=== PATIENT | female | born 1935 | race Caucasian/White ===

== ENCOUNTER 2016-11-23 12:32 | Emergency (ER) | payer OTHER ==
[~2016-11-23] VITALS: Ht 157.5 cm; Wt 91.1 kg
[~2016-11-23 12:32] MED LIST: ADVAIR HFA120 INHALA IH; ADVIL,NUPRIN,M200 MG PO; ALBUTEROL2.5 MG/3 M IH; ALENDRONATE SOD70 MG PO; AMBIEN10 MG PO; AMBIEN5 MG PO; AMLODIPINE BES2.5 MG PO; AMLODIPINE BESYL5 MG PO; ANTI-DIARRHEA2 MG PO; APLISOL5 TUB UNIT ID; ASPIRIN E.C.81 M1 PO; Ambien PO; Ascorbic Acid,Ester- PO; BACTRIM,SEPT1 TABLET PO; BENTYL20 MG PO; BICARSIM FORTE125 MG PO; BICARSIM80 MG PO; BUSPAR10 MG PO; BUSPAR5 MG PO; Buspar PO; CALCIUM + D3 E1 EACH PO; CALCIUM 600 +1 EAC1 PO; CEFDINIR300 MG PO; CEPHALEXIN250 MG PO; CIPRO250 MG PO; CIPRO500 MG PO; CIPROFLOXACIN500 M1 PO; CLONAZEPAM0.5 MG PO; COLACE100 MG PO; COMPAZINE10 MG PO; COZAAR50 MG PO; CYANOCOBALAM1000 MCG PO; DELTASONE10 MG PO; DOCUSATE SODIU100 MG PO; DULCOLAX10 MG PR; DUONEB 2.5-0.5 M3 ML IH; EFFEXOR75 MG PO; ENDOCET 5-3251 EACH PO; ENOXAPARIN30 MG/0.3 SC; FAMOTIDINE20 MG PO; FEOSOL325 MG PO; FEROSUL325 MG PO; FERROUS SULFAT325 MG PO; Feosol PO; Flagyl PO; GABAPENTIN; GRALISE1 EACH PO; HYDROCHLOROTH12.5 M3 PO; INVANZ1 GM IM; IPRATROPIU0.2 MG/1 M IH; K-DUR10 MEQ PO; KEFLEX250 MG PO; KLONOPIN0.5 M1 PO; KlonoPIN PO; LASIX10 MG PO; LEVAQUIN500 MG PO; LEVAQUIN750 MG PO; LEVOFLOXACIN250 MG PO; LIDOCAINE700 MG TD; LIDODERM 5% P1 PATCH TD; LOPRESSOR25 MG PO; LOPRESSOR50 MG PO; LOSARTAN POTAS100 MG PO; LOSARTAN POTASS50 MG PO; Levaquin PO; MACRODANTIN100 MG PO; MECLIZINE HCL12.5 M1 PO; METOPROLOL TART25 MG PO; METOPROLOL TART50 MG PO; MIRALAX17 GM PO; MIRALAX255 GM PO; MORPHINE SULFAT15 M1 PO; NEURONTIN100 MG PO; NORVASC10 MG PO; NORVASC2.5 MG PO; NYSTATIN100000 UN1 PO; Norvasc PO; OMEPRAZOLE20 MG PO; ONDANSETRON HCL4 M1 PO; OXYCODONE HCL10 MG PO; OXYCODONE HCL5 MG PO; OXYCODONE-APAP1 EAC7 PO; OXYCODONE-APAP1 EACH PO; OXYCONTIN10 MG PO; OYSTER SHELL 51 EACH PO; OYSTER SHELL C1 EA16 PO; OYSTERCAL-D 501 EACH PO; Oyst-Cal D, Oscal W/ PO; PANTOPRAZOLE SO40 MG PO; PAROXETINE HCL20 MG PO; PAXIL20 MG PO; PEPCID AC20 MG PO; PEPCID20 MG PO; PERCOCET 10/1 TABLET PO; PERCOCET 5/31 TABLET PO; PREDNISONE10 MG PO; PRILOSEC20 MG PO; PROAIR HFA8.5 GM IH; PROTONIX40 MG PO; PROVENTIL,2.5 MG/3 M IH; Paxil PO; Pepcid PO; Pravachol PO; Protonix PO; ROBITUSSIN AC,T10 ML PO; ROXICODONE5 MG PO; SENNA8.6 MG PO; SIMVASTATIN20 MG PO; TOPROL XL50 MG PO; TRAMADOL HCL50 MG PO; TRAZODONE HCL50 MG PO; TYLENOL PM1 CAPLET PO; TYLENOL REGULA325 MG PO; TYLENOL325 M1 PO; Toprol XL PO; Tylenol Regular Stre PO; ULTRAM50 MG PO; Ultram PO; VENTOLIN HFA18 GM IH; Vitamin B-12 PO; XANAX0.125 MG PO; ZITHROMAX250 MG PO; ZOCOR20 MG PO; ZOFRAN4 MG PO; Zocor PO
[2016-11-23 13:29] LABS: ADD MIUA? YES; BILIRUBIN NEGATIVE; BLOOD NEGATIVE; COLOR YELLOW ((YELLOW)); GLUCOSE (STRIP) NEGATIVE; KETONES NEGATIVE; LEUKOCYTES SMALL; NITRITE NEGATIVE; PROTEIN (STRIP) NEGATIVE; SPECIFIC GRAVITY 1.015 (1.000-1.030); UROBILINOGEN 0.2 MG/DL (0.2-1.0)
[2016-11-23 13:34] LABS: EOSINOPHIL (%) 3.2 % (0-5); EOSINOPHIL COUNT 0.2 K/uL (0-0.3); HEMATOCRIT 32.6 % (36.0-46.0); IMMATURE GRANULOCYTE (%) 0.4 % (0.0-0.7); INSTRUMENT ABS NEUTROPHIL CT 3.2 K/uL; LYMPHOCYTE COUNT 0.8 K/uL (1.0-2.8); MCH 30.7 PG (29.0-34.0); MCHC 30.4 G/DL (30.0-36.0); MCV 101.2 FL (83-99); MEAN PLAT.VOLUME 10.4 uM^3 (9.5-12.4); MONOCYTE COUNT 0.5 K/uL (0-0.8); NEUTROPHIL (%) 68.5 % (45-76); NEUTROPHIL COUNT 3.2 K/uL (1.8-6.4); PLATELET COUNT 169 K/uL (156-360); RBC DIS.WIDTH-CV 13.6 % (11.8-14.6); RBC DIS.WIDTH-SD 50.4 % (39-53); RED BLOOD COUNT 3.22 M/uL (3.80-5.20); WHITE BLOOD COUNT 4.7 K/uL (4.1-10.2)
[2016-11-23 13:40] LABS: BACTERIA 3+ /HPF; EPITHELIAL CELLS RARE /HPF; GRANULAR CASTS 0-5 /LPF; HYALINE CASTS 0-5 /LPF; MUCUS TRACE /LPF; RED BLOOD CELLS 0-5 /HPF (0-5); UCUL ADDED? YES
[2016-11-23 13:50] LABS: CHLORIDE 101 mEq/L (99-109); SODIUM 138 mEq/L (136-147)
[2016-11-23 13:52] LABS: GLUCOSE 96 mg/dL (70-99)
[2016-11-23 13:53] LABS: ANION GAP 8 MEQ/L (2-14)
[2016-11-23 13:54] LABS: TOTAL BILIRUBIN 0.6 mg/dL (0.0-1.0)
[2016-11-23 13:55] LABS: ALKALINE PHOSPHATASE 114 IU/L (3-129)
[2016-11-23 13:56] LABS: GFR ESTIMATE (CALCULATED) 46 mL/min/
[2016-11-23 13:57] LABS: UREA NITROGEN (BUN) 31 mg/dL (9-23)
[2016-11-23 13:59] LABS: LIPASE 21 U/L (1.0-51.0)
[2016-11-23 14:02] LABS: TROP-I INTERPRETATION NEGATIVE; TROPONIN-I 0.02 ng/mL (0.0-0.30)
[2016-11-23] MEDS ORDERED: ANTIVERT25 MG PO (14:20)
[2016-11-23] MEDS ORDERED: CIPRO500 MG PO (14:20)
[2016-11-23 15:37] VITALS: BP 124/46
== END 2016-11-23 15:56 | disposition home or self-care (01) ==
LOC: EME 12:32
PROVIDERS: Emergency Medicine
DX: R53.1 Weakness (principal); N39.0 Urinary tract infection, site not specified; R10.13 Epigastric pain; R05 Cough; R42 Dizziness and giddiness; Z87.442 Personal history of urinary calculi; G89.29 Other chronic pain; I10 Essential (primary) hypertension; J44.9 Chronic obstructive pulmonary disease, unspecified; J45.909 Unspecified asthma, uncomplicated; Z95.1 Presence of aortocoronary bypass graft; Z90.49 Acquired absence of other specified parts of digestive tract; Z87.891 Personal history of nicotine dependence; Z99.81 Dependence on supplemental oxygen
CPT/HCPCS: 71010; 74176; 80053; 81003; 83690; 84484; 85025; 87077; 87086; 87186; 93005; 99281; 99285; J2270; J2405; J7030

== ENCOUNTER 2017-01-13 20:53 | Emergency (ER) | payer OTHER ==
[~2017-01-13] VITALS: Ht 154.9 cm; Wt 93.5 kg
[~2017-01-13 20:53] MED LIST changes: +ANTIVERT25 MG PO
[2017-01-14 01:45] VITALS: BP 149/63
== END 2017-01-14 01:45 | disposition home or self-care (01) ==
LOC: EXP 20:53 → EME 20:53 → EXP 01-14 01:45
DX: S60.211A Contusion of right wrist, initial encounter (principal); S20.211A Contusion of right front wall of thorax, initial encounter; W07.XXXA Fall from chair, initial encounter; J44.9 Chronic obstructive pulmonary disease, unspecified; E78.5 Hyperlipidemia, unspecified; F32.9 Major depressive disorder, single episode, unspecified; I50.9 Heart failure, unspecified; I11.0 Hypertensive heart disease with heart failure; K21.9 Gastro-esophageal reflux disease without esophagitis; Z95.1 Presence of aortocoronary bypass graft; Z87.891 Personal history of nicotine dependence
CPT/HCPCS: 71020; 73110; 99281; 99284

== ENCOUNTER 2017-03-14 17:19 | Inpatient (IN) | payer OTHER ==
[~2017-03-14] VITALS: Ht 162.6 cm; Wt 91.8 kg
[2017-03-14 18:33] LABS: ADD MIUA? YES; BILIRUBIN NEGATIVE; BLOOD NEGATIVE; COLOR STRAW ((YELLOW)); GLUCOSE (STRIP) NEGATIVE; KETONES NEGATIVE; LEUKOCYTES TRACE; NITRITE NEGATIVE; PROTEIN (STRIP) NEGATIVE; SPECIFIC GRAVITY 1.009 (1.000-1.030); UROBILINOGEN 0.2 MG/DL (0.2-1.0)
[2017-03-14 18:40] LABS: MCH 30.7 PG (29.0-34.0); MCHC 30.8 G/DL (30.0-36.0); MCV 99.6 FL (83-99); MEAN PLAT.VOLUME 9.6 uM^3 (9.5-12.4); PLATELET COUNT 179 K/uL (156-360); RBC DIS.WIDTH-CV 13.3 % (11.8-14.6); RBC DIS.WIDTH-SD 48.2 % (39-53); RED BLOOD COUNT 2.61 M/uL (3.80-5.20); WHITE BLOOD COUNT 4.8 K/uL (4.1-10.2)
[2017-03-14 18:41] LABS: BACTERIA NONE SEEN /HPF; EPITHELIAL CELLS RARE /HPF; MUCUS TRACE /LPF; RED BLOOD CELLS 0-5 /HPF (0-5); UCUL ADDED? NO; WHITE BLOOD CELLS 0-5 /HPF (0-5)
[2017-03-14 18:45] LABS: PROTHROMBIN TIME 11.5 SEC (10.2-12.9); TROP-I INTERPRETATION NEGATIVE; TROPONIN-I 0.01 ng/mL (0.0-0.30)
[2017-03-14 18:47] LABS: PTT 27.1 SEC (25-37)
[2017-03-14 18:49] LABS: CHLORIDE 106 mEq/L (99-109); POTASSIUM 4.1 mEq/L (3.7-5.4); SODIUM 143 mEq/L (136-147)
[2017-03-14 18:51] LABS: GLUCOSE 93 mg/dL (70-99)
[2017-03-14 18:53] LABS: ANION GAP 7 MEQ/L (2-14); TOTAL BILIRUBIN 0.6 mg/dL (0.0-1.0)
[2017-03-14 18:55] LABS: ALKALINE PHOSPHATASE 91 IU/L (3-129); GFR ESTIMATE (CALCULATED) > 59 mL/min/
[2017-03-14 18:56] LABS: UREA NITROGEN (BUN) 16 mg/dL (9-23)
[2017-03-14] MEDS ORDERED: OXYCODONE-APAP1 EACH PO (23:59)
[2017-03-15] VITALS (8 sets, daily range): BP systolic 119–171; BP diastolic 67–78
[2017-03-15] MEDS ORDERED: FUROSEMIDE20 MG PO
[2017-03-15] MEDS ORDERED: BUSPAR10 MG PO (00:07)
[2017-03-15 06:49] LABS: EOSINOPHIL (%) 3.8 % (0-5); EOSINOPHIL COUNT 0.2 K/uL (0-0.3); HEMATOCRIT 25.2 % (36.0-46.0); IMMATURE GRANULOCYTE (%) 0.3 % (0.0-0.7); INSTRUMENT ABS NEUTROPHIL CT 2.5 K/uL; LYMPHOCYTE COUNT 0.8 K/uL (1.0-2.8); MCH 31.7 PG (29.0-34.0); MCHC 31.7 G/DL (30.0-36.0); MEAN PLAT.VOLUME 10.5 uM^3 (9.5-12.4); MONOCYTE (%) 11.6 % (3-12); MONOCYTE COUNT 0.5 K/uL (0-0.8); NEUTROPHIL (%) 62.9 % (45-76); NEUTROPHIL COUNT 2.5 K/uL (1.8-6.4); PLATELET COUNT 186 K/uL (156-360); RBC DIS.WIDTH-CV 13.4 % (11.8-14.6); RBC DIS.WIDTH-SD 48.8 % (39-53); RED BLOOD COUNT 2.52 M/uL (3.80-5.20)
[2017-03-15 07:13] LABS: ANION GAP 5 MEQ/L (2-14); CHLORIDE 107 MEQ/L (99-109); GFR ESTIMATE (CALCULATED) > 59 mL/min/; GLUCOSE 95 mg/dL (70-99); POTASSIUM 3.8 MEQ/L (3.7-5.4); SAMPLE HEMOLYSIS CHECK 0; SAMPLE ICTERIC CHECK 0; SAMPLE LIPEMIA CHECK 0; SODIUM 145 MEQ/L (136-147); UREA NITROGEN (BUN) 13 mg/dL (9-23)
[2017-03-15 08:38] LABS: INTERNAL CONTROL VALID? YES
[2017-03-15 11:42] LABS: HEMATOCRIT 25.8 % (36.0-46.0); MCV 99.2 FL (83-99)
[2017-03-15 13:39] LABS: INTERNAL CONTROL VALID? YES
[2017-03-15 13:52] LABS: INTERNAL CONTROL VALID? YES
[2017-03-15 14:18] LABS: C DIFF TOXIN NEGATIVE (NEGATIVE)
[2017-03-15 14:19] LABS: PROBE CHECK PASS; SPECIMEN PROCESSING CONTROL PASS
[2017-03-15 18:10] LABS: HEMATOCRIT 25.9 % (36.0-46.0); MCV 97.7 FL (83-99)
[2017-03-16 00:42] VITALS: BP 141/63
[2017-03-16 03:53] VITALS: BP 151/69
[2017-03-16 07:10] VITALS: BP 187/77
[2017-03-16 11:34] VITALS: BP 146/64
[2017-03-16 15:03] VITALS: BP 143/65
[2017-03-16 18:26] LABS: METH RESISTANT S AUREUS PCR NEGATIVE (NEGATIVE)
[2017-03-16 18:27] LABS: PROBE CHECK PASS; SPECIMEN PROCESSING CONTROL PASS
[2017-03-17 00:40] VITALS: BP 124/60
[2017-03-17 07:50] VITALS: BP 186/74
[2017-03-17 11:35] VITALS: BP 133/63
[2017-03-17 15:26] VITALS: BP 114/59
[2017-03-17 23:41] VITALS: BP 131/61
[2017-03-17 23:50] VITALS: BP 134/64; BP 141/59
[2017-03-18] VITALS: BP 131/61
[2017-03-18 07:46] VITALS: BP 115/56
[2017-03-18 09:20] VITALS: BP 115/59
[2017-03-18 09:58] LABS: EOSINOPHIL (%) 6.3 % (0-5); EOSINOPHIL COUNT 0.3 K/uL (0-0.3); HEMATOCRIT 28.1 % (36.0-46.0); IMMATURE GRANULOCYTE (%) 0.2 % (0.0-0.7); INSTRUMENT ABS NEUTROPHIL CT 2.6 K/uL; LYMPHOCYTE COUNT 1.1 K/uL (1.0-2.8); MCHC 30.6 G/DL (30.0-36.0); MCV 101.4 FL (83-99); MEAN PLAT.VOLUME 10.2 uM^3 (9.5-12.4); MONOCYTE (%) 10.2 % (3-12); MONOCYTE COUNT 0.5 K/uL (0-0.8); NEUTROPHIL (%) 58.4 % (45-76); NEUTROPHIL COUNT 2.6 K/uL (1.8-6.4); PLATELET COUNT 228 K/uL (156-360); RBC DIS.WIDTH-CV 14.3 % (11.8-14.6); RBC DIS.WIDTH-SD 51.9 % (39-53); RED BLOOD COUNT 2.77 M/uL (3.80-5.20); WHITE BLOOD COUNT 4.4 K/uL (4.1-10.2)
[2017-03-18 10:26] LABS: ANION GAP 9 MEQ/L (2-14); CHLORIDE 102 MEQ/L (99-109); GFR ESTIMATE (CALCULATED) 56 mL/min/; GLUCOSE 83 mg/dL (70-99); MAGNESIUM 1.9 mg/dl (1.3-2.7); POTASSIUM 4.2 MEQ/L (3.7-5.4); SAMPLE HEMOLYSIS CHECK 0; SAMPLE ICTERIC CHECK 0; SAMPLE LIPEMIA CHECK 0; SODIUM 142 MEQ/L (136-147); UREA NITROGEN (BUN) 15 mg/dL (9-23)
[2017-03-18 10:27] LABS: TROP-I INTERPRETATION NEGATIVE; TROPONIN-I 0.02 ng/mL (0.0-0.30)
[2017-03-18 15:47] VITALS: BP 115/56
[2017-03-18 16:00] VITALS: BP 115/56
[2017-03-19 00:57] VITALS: BP 134/61
[2017-03-19] MEDS ORDERED: CEFDINIR300 MG PO (11:48)
== END 2017-03-19 14:50 | disposition home or self-care (01) | DRG 190 ==
LOC: EME 17:19 → EDOF 22:54 → 2EAST 22:54 → ENRESERV 22:58 → CANRESERV 23:25 → 2EAST 23:59
PROVIDERS: Emergency Medicine; Internal Medicine
DX: J44.0 Chronic obstructive pulmonary disease with (acute) lower respiratory infection (principal); J18.1 Lobar pneumonia, unspecified organism; J44.1 Chronic obstructive pulmonary disease with (acute) exacerbation; I11.0 Hypertensive heart disease with heart failure; I50.9 Heart failure, unspecified; J96.10 Chronic respiratory failure, unspecified whether with hypoxia or hypercapnia; E78.5 Hyperlipidemia, unspecified; K21.9 Gastro-esophageal reflux disease without esophagitis; D50.9 Iron deficiency anemia, unspecified; F32.9 Major depressive disorder, single episode, unspecified; F41.9 Anxiety disorder, unspecified; M19.90 Unspecified osteoarthritis, unspecified site; E66.9 Obesity, unspecified; Z68.34 Body mass index [BMI] 34.0-34.9, adult; Z99.81 Dependence on supplemental oxygen; Z87.891 Personal history of nicotine dependence; Z95.1 Presence of aortocoronary bypass graft; Z85.43 Personal history of malignant neoplasm of ovary; Z85.3 Personal history of malignant neoplasm of breast; Z87.442 Personal history of urinary calculi; Z86.711 Personal history of pulmonary embolism
CPT/HCPCS: 71010; 71020; 80048; 80053; 81003; 82272; 83605; 83630; 83735; 84484; 85014; 85018; 85025; 85027; 85610; 85730; 86850; 86900; 86901; 87040; 87070; 87177; 87205; 87449; 87493; 87641; 92610 GN; 93005; 94640; 94640 76; 94799; 99202; 99281; 99285; J0456; J0696; J1644; J7030; J7050

== ENCOUNTER 2017-07-04 09:27 | Emergency (ER) | payer OTHER ==
[~2017-07-04] VITALS: Ht 162.6 cm; Wt 88.1 kg
[~2017-07-04 09:27] MED LIST changes: +FUROSEMIDE20 MG PO
[2017-07-04 11:09] LABS: APPEARANCE SL.HAZY ((CLEAR)); BILIRUBIN NEGATIVE; BLOOD NEGATIVE; COLOR YELLOW ((YELLOW)); GLUCOSE (STRIP) NEGATIVE; KETONES NEGATIVE; LEUKOCYTES MODERATE; NITRITE NEGATIVE; PROTEIN (STRIP) 30; SPECIFIC GRAVITY 1.025 (1.000-1.030); UROBILINOGEN 0.2 MG/DL (0.2-1.0)
[2017-07-04 11:16] LABS: BASOPHIL (%) 0.2 % (0-1); EOSINOPHIL (%) 5.8 % (0-5); EOSINOPHIL COUNT 0.3 K/uL (0-0.3); HEMATOCRIT 25.8 % (36.0-46.0); HEMOGLOBIN 7.6 G/DL (11.9-15.5); IMMATURE GRANULOCYTE (%) 0.4 % (0.0-0.7); LYMPHOCYTE (%) 17.4 % (15-42); LYMPHOCYTE COUNT 0.8 K/uL (1.0-2.8); MCH 26.7 PG (29.0-34.0); MCHC 29.5 G/DL (30.0-36.0); MCV 90.5 FL (83-99); MONOCYTE (%) 8.3 % (3-12); MONOCYTE COUNT 0.4 K/uL (0-0.8); NEUTROPHIL (%) 67.9 % (45-76); NEUTROPHIL COUNT 3.3 K/uL (1.8-6.4); PLATELET COUNT 156 K/uL (156-360); RBC DIS.WIDTH-CV 15.5 % (11.8-14.6); RBC DIS.WIDTH-SD 50.4 % (39-53); RED BLOOD COUNT 2.85 M/uL (3.80-5.20); WHITE BLOOD COUNT 4.8 K/uL (4.1-10.2)
[2017-07-04 11:17] LABS: BACTERIA 3+ /HPF; EPITHELIAL CELLS RARE /HPF; MUCUS 1+ /LPF; UCUL ADDED? YES; WHITE BLOOD CELLS 20-30 /HPF (0-5)
[2017-07-04 11:25] LABS: ALBUMIN 3.6 g/dL (3.2-4.8)
[2017-07-04 11:26] LABS: CHLORIDE 106 mEq/L (99-109); POTASSIUM 3.9 mEq/L (3.7-5.4); SODIUM 142 mEq/L (136-147)
[2017-07-04 11:28] LABS: GLUCOSE 110 mg/dL (70-99); TOTAL PROTEIN 6.5 g/dL (6.4-8.3)
[2017-07-04 11:30] LABS: TOTAL BILIRUBIN 0.3 mg/dL (0.0-1.0)
[2017-07-04 11:31] LABS: ALKALINE PHOSPHATASE 77 IU/L (3-129); GFR ESTIMATE (CALCULATED) 56 mL/min/
[2017-07-04 11:33] LABS: AST (GOT) 15 IU/L (2-34); UREA NITROGEN (BUN) 29 mg/dL (9-23)
[2017-07-04 11:34] LABS: ALT (GPT) 8 IU/L (3-49)
[2017-07-04 11:37] LABS: TROP-I INTERPRETATION NEGATIVE; TROPONIN-I 0.02 ng/mL (0.0-0.30)
[2017-07-04 12:04] LABS: AMPHETAMINE NEGATIVE (500 ng/mL); BARBITURATES NEGATIVE (200 ng/mL); BENZODIAZEPINES NEGATIVE (150 ng/mL); BUPRENORPHINE NEGATIVE (10 ng/mL); COCAINE NEGATIVE (150 ng/mL); METHADONE NEGATIVE (200 ng/mL); METHAMPHETAMINE NEGATIVE (500 ng/mL); OPIATES (MORPHINE) NEGATIVE (100 ng/mL); OXYCODONE NEGATIVE (100 ng/mL); PHENCYCLIDINE NEGATIVE (25 ng/mL); PROPOXYPHENE NEGATIVE (300 ng/mL); THC CANNABINOIDS NEGATIVE (50 ng/mL); TRICYCLIC ANTIDEPRESSANTS NEGATIVE (300 ng/mL)
[2017-07-04 13:07] LABS: ACETAMINOPHEN (TYLENOL) < 10 mcg/mL (10-30)
[2017-07-04] MEDS ORDERED: KEFLEX500 MG PO (15:06)
[2017-07-04] MEDS ORDERED: ZOFRAN4 MG PO (15:06)
[2017-07-04] MEDS ORDERED: BENTYL20 MG PO (15:06)
[2017-07-04 18:30] VITALS: BP 125/52
== END 2017-07-04 18:50 | disposition home or self-care (01) ==
LOC: EME → EDBD 09:27 → EME 09:27
PROVIDERS: Emergency Medicine
DX: F11.23 Opioid dependence with withdrawal (principal); M79.1 Myalgia; R19.7 Diarrhea, unspecified; N39.0 Urinary tract infection, site not specified; I11.0 Hypertensive heart disease with heart failure; I50.9 Heart failure, unspecified; K21.9 Gastro-esophageal reflux disease without esophagitis; J44.9 Chronic obstructive pulmonary disease, unspecified; E78.5 Hyperlipidemia, unspecified; F41.9 Anxiety disorder, unspecified; F32.9 Major depressive disorder, single episode, unspecified; Z87.442 Personal history of urinary calculi; Z90.49 Acquired absence of other specified parts of digestive tract; Z87.891 Personal history of nicotine dependence; Z88.6 Allergy status to analgesic agent; Z88.8 Allergy status to other drugs, medicaments and biological substances
CPT/HCPCS: 71045; 74176; 80053; 81003; 83605; 83880; 84484; 85025; 87040; 87077; 87086; 87186; 87502; 93005; 99281; 99284; G0480; J2270; J2405; J3010

== ENCOUNTER 2017-08-03 11:28 | Emergency (ER) | payer OTHER ==
[~2017-08-03] VITALS: Ht 162.6 cm; Wt 88.3 kg
[~2017-08-03 11:28] MED LIST changes: +KEFLEX500 MG PO
[2017-08-03 13:19] LABS: HEMATOCRIT 26.3 % (36.0-46.0); HEMOGLOBIN 7.7 G/DL (11.9-15.5); MCH 26.4 PG (29.0-34.0); MCHC 29.3 G/DL (30.0-36.0); MCV 90.1 FL (83-99); PLATELET COUNT 216 K/uL (156-360); RBC DIS.WIDTH-CV 16.2 % (11.8-14.6); RBC DIS.WIDTH-SD 53.2 % (39-53); RED BLOOD COUNT 2.92 M/uL (3.80-5.20); WHITE BLOOD COUNT 4.6 K/uL (4.1-10.2)
[2017-08-03 13:29] LABS: CHLORIDE 105 mEq/L (99-109); POTASSIUM 4.5 mEq/L (3.7-5.4); SODIUM 142 mEq/L (136-147)
[2017-08-03 13:30] LABS: GLUCOSE 94 mg/dL (70-99)
[2017-08-03 13:34] LABS: GFR ESTIMATE (CALCULATED) 56 mL/min/
[2017-08-03 13:35] LABS: UREA NITROGEN (BUN) 12 mg/dL (9-23)
[2017-08-03 13:42] LABS: TROP-I INTERPRETATION NEGATIVE; TROPONIN-I 0.02 ng/mL (0.0-0.30)
[2017-08-03 17:18] VITALS: BP 153/64
== END 2017-08-03 17:19 | disposition home or self-care (01) ==
LOC: EME 11:28
PROVIDERS: Emergency Medicine Emergency Medical Services
DX: M54.9 Dorsalgia, unspecified (principal); R07.89 Other chest pain; J06.9 Acute upper respiratory infection, unspecified; I11.0 Hypertensive heart disease with heart failure; I50.9 Heart failure, unspecified; K21.9 Gastro-esophageal reflux disease without esophagitis; J44.9 Chronic obstructive pulmonary disease, unspecified; E78.5 Hyperlipidemia, unspecified; F41.9 Anxiety disorder, unspecified; F32.9 Major depressive disorder, single episode, unspecified; Z87.442 Personal history of urinary calculi; Z90.49 Acquired absence of other specified parts of digestive tract; Z87.891 Personal history of nicotine dependence; Z88.6 Allergy status to analgesic agent; Z88.8 Allergy status to other drugs, medicaments and biological substances
CPT/HCPCS: 71046; 80048; 84484; 85027; 93005; 99281; 99285

== ENCOUNTER 2017-11-03 09:07 | Inpatient (IN) | payer OTHER ==
[~2017-11-03] VITALS: Ht 154.9 cm; Wt 93.4 kg
[2017-11-03] VITALS (15 sets, daily range): BP systolic 117–164; BP diastolic 55–84
[2017-11-03 09:34] LABS: APPEARANCE SL.HAZY ((CLEAR)); BILIRUBIN NEGATIVE; BLOOD LARGE; COLOR YELLOW ((YELLOW)); GLUCOSE (STRIP) NEGATIVE; KETONES NEGATIVE; LEUKOCYTES SMALL; NITRITE POSITIVE; PROTEIN (STRIP) 30; SPECIFIC GRAVITY 1.017 (1.000-1.030)
[2017-11-03 09:44] LABS: BACTERIA 3+ /HPF; EPITHELIAL CELLS RARE /HPF; HYALINE CASTS 0-5 /LPF; MUCUS 1+ /LPF; RED BLOOD CELLS TNTC /HPF (0-5); UCUL ADDED? YES; WHITE BLOOD CELLS 20-30 /HPF (0-5)
[2017-11-03 09:56] LABS: CHLORIDE 100 mEq/L (99-109); HEMATOCRIT 21.1 % (36.0-46.0); MCH 24.5 PG (29.0-34.0); MCHC 27.5 G/DL (30.0-36.0); PLATELET COUNT 192 K/uL (156-360); POTASSIUM 4.5 mEq/L (3.7-5.4); RBC DIS.WIDTH-CV 15.9 % (11.8-14.6); RBC DIS.WIDTH-SD 51.4 % (39-53); RED BLOOD COUNT 2.37 M/uL (3.80-5.20); SODIUM 142 mEq/L (136-147); WHITE BLOOD COUNT 14.9 K/uL (4.1-10.2)
[2017-11-03 09:57] LABS: GLUCOSE 114 mg/dL (70-99); HEMOGLOBIN 5.8 G/DL (11.9-15.5)
[2017-11-03 10:01] LABS: CREATININE 1.1 mg/dL (0.6-1.3); GFR ESTIMATE (CALCULATED) 50 mL/min/
[2017-11-03 10:02] LABS: UREA NITROGEN (BUN) 23 mg/dL (9-23)
[2017-11-03 10:08] LABS: TROP-I INTERPRETATION NEGATIVE; TROPONIN-I 0.04 ng/mL (0.0-0.30)
[2017-11-03] MEDS ORDERED: TRAZODONE HCL50 MG PO (11:19)
[2017-11-03 14:50] LABS: HEMATOCRIT 22.9 % (36.0-46.0); MCH 24.9 PG (29.0-34.0); MCHC 28.8 G/DL (30.0-36.0); MCV 86.4 FL (83-99); PLATELET COUNT 167 K/uL (156-360); RBC DIS.WIDTH-CV 15.9 % (11.8-14.6); RBC DIS.WIDTH-SD 50.2 % (39-53); RED BLOOD COUNT 2.65 M/uL (3.80-5.20); WHITE BLOOD COUNT 17.2 K/uL (4.1-10.2)
[2017-11-03 14:51] LABS: HEMOGLOBIN 6.6 G/DL (11.9-15.5)
[2017-11-04] VITALS (9 sets, daily range): BP systolic 134–160; BP diastolic 61–88
[2017-11-04 06:58] LABS: HEMATOCRIT 34.1 % (36.0-46.0); MCH 26.3 PG (29.0-34.0); MCHC 29.9 G/DL (30.0-36.0); MCV 87.9 FL (83-99); NRBC (%) 0.1 /100 WBC (0-0); PLATELET COUNT 129 K/uL (156-360); RBC DIS.WIDTH-CV 15.5 % (11.8-14.6); RBC DIS.WIDTH-SD 49.6 % (39-53); WHITE BLOOD COUNT 13.9 K/uL (4.1-10.2)
[2017-11-04 06:59] LABS: HEMOGLOBIN 10.2 G/DL (11.9-15.5); RED BLOOD COUNT 3.88 M/uL (3.80-5.20)
[2017-11-04 07:17] LABS: CHLORIDE 99 MEQ/L (99-109); CREATININE 1.1 MG/DL (0.6-1.3); GFR ESTIMATE (CALCULATED) 50 mL/min/; GLUCOSE 92 mg/dL (70-99); POTASSIUM 4.3 MEQ/L (3.7-5.4); SODIUM 142 MEQ/L (136-147); UREA NITROGEN (BUN) 21 mg/dL (9-23)
[2017-11-05 03:12] VITALS: BP 124/75
[2017-11-05 07:47] VITALS: BP 164/71
[2017-11-05 09:04] LABS: HEMATOCRIT 33.5 % (36.0-46.0); HEMOGLOBIN 9.9 G/DL (11.9-15.5); MCH 26.5 PG (29.0-34.0); MCHC 29.6 G/DL (30.0-36.0); MCV 89.8 FL (83-99); PLATELET COUNT 143 K/uL (156-360); RBC DIS.WIDTH-CV 15.6 % (11.8-14.6); RBC DIS.WIDTH-SD 51.4 % (39-53); RED BLOOD COUNT 3.73 M/uL (3.80-5.20); WHITE BLOOD COUNT 10.2 K/uL (4.1-10.2)
[2017-11-05 09:07] LABS: BASE EXCESS 12.1 mEq/L (-3 to +3); BICARBONATE 40.1 mEq/L (22-26); CARBOXY HGB 2.8 % (0-5); METHEMOGLOBIN 1.3 % (0-1.5); PCO2 76 mm Hg (35-45); PO2 101 mm Hg (80-100); pH 7.33 (7.35-7.45)
[2017-11-05 09:08] LABS: COMMENTS - BLOOD GASES AC+; DEVICE NASAL CANNULA; O2 FLOW 6 L/MIN; SITE LR; TOTAL RESP RATE 16 resp/min
[2017-11-05 11:55] VITALS: BP 154/70
[2017-11-05 19:30] VITALS: BP 151/69
[2017-11-05 23:28] VITALS: BP 184/77
[2017-11-06] VITALS (14 sets, daily range): BP systolic 107–176; BP diastolic 44–90
[2017-11-06 05:57] LABS: HEMATOCRIT 31.9 % (36.0-46.0); HEMOGLOBIN 9.1 G/DL (11.9-15.5); MCH 25.9 PG (29.0-34.0); MCHC 28.5 G/DL (30.0-36.0); MCV 90.6 FL (83-99); PLATELET COUNT 137 K/uL (156-360); RBC DIS.WIDTH-CV 15.7 % (11.8-14.6); RBC DIS.WIDTH-SD 52.2 % (39-53); RED BLOOD COUNT 3.52 M/uL (3.80-5.20); WHITE BLOOD COUNT 7.4 K/uL (4.1-10.2)
[2017-11-06 06:19] LABS: CHLORIDE 100 MEQ/L (99-109); CREATININE 0.8 MG/DL (0.6-1.3); GFR ESTIMATE (CALCULATED) > 59 mL/min/; GLUCOSE 97 mg/dL (70-99); POTASSIUM 4.1 MEQ/L (3.7-5.4); SODIUM 142 MEQ/L (136-147); UREA NITROGEN (BUN) 18 mg/dL (9-23)
[2017-11-06 10:52] LABS: BASE EXCESS 12.2 mEq/L (-3 to +3); BICARBONATE 41.4 mEq/L (22-26); CARBOXY HGB 1.3 % (0-5); COMMENTS - BLOOD GASES A+C+; METHEMOGLOBIN 1.5 % (0-1.5); PCO2 86 mm Hg (35-45); PO2 88 mm Hg (80-100); SITE LRAD; pH 7.29 (7.35-7.45)
[2017-11-06 10:53] LABS: DEVICE HEATED HIFLONASCAN; FI02 100 %; O2 FLOW 30 L/MIN; TOTAL RESP RATE 20 resp/min
[2017-11-06 13:08] LABS: ALBUMIN 3.2 g/dL (3.2-4.8)
[2017-11-06 13:11] LABS: TOTAL PROTEIN 5.6 g/dL (6.4-8.3)
[2017-11-06 13:13] LABS: TOTAL BILIRUBIN 0.7 mg/dL (0.0-1.0)
[2017-11-06 13:14] LABS: ALKALINE PHOSPHATASE 82 IU/L (3-129)
[2017-11-06 13:16] LABS: AST (GOT) 10 IU/L (2-34); DIRECT BILIRUBIN 0.3 mg/dL (0.0-0.3)
[2017-11-06 13:17] LABS: ALT (GPT) 8 IU/L (3-49)
[2017-11-06 15:30] LABS: HIGH-SENS C-REACTIVE PROTEIN > 8.00 MG/DL (0.02-0.20)
[2017-11-06 20:48] LABS: HEMATOCRIT 35.5 % (36.0-46.0); HEMOGLOBIN 10.4 G/DL (11.9-15.5)
[2017-11-07] VITALS (20 sets, daily range): BP systolic 125–175; BP diastolic 51–75
[2017-11-07 06:11] LABS: HEMATOCRIT 35.3 % (36.0-46.0); HEMOGLOBIN 10.2 G/DL (11.9-15.5); MCV 89.6 FL (83-99)
[2017-11-07 06:49] LABS: HIGH-SENS C-REACTIVE PROTEIN > 8.00 MG/DL (0.02-0.20)
[2017-11-08 00:24] VITALS: BP 166/81
[2017-11-08 08:01] VITALS: BP 178/80
[2017-11-08 09:33] LABS: HEMATOCRIT 34.1 % (36.0-46.0); HEMOGLOBIN 10.1 G/DL (11.9-15.5); MCH 26.3 PG (29.0-34.0); MCHC 29.6 G/DL (30.0-36.0); MCV 88.8 FL (83-99); PLATELET COUNT 175 K/uL (156-360); RBC DIS.WIDTH-CV 15.7 % (11.8-14.6); RBC DIS.WIDTH-SD 50.2 % (39-53); RED BLOOD COUNT 3.84 M/uL (3.80-5.20); WHITE BLOOD COUNT 7.6 K/uL (4.1-10.2)
[2017-11-08 10:16] LABS: CHLORIDE 103 MEQ/L (99-109); CREATININE 0.8 MG/DL (0.6-1.3); GFR ESTIMATE (CALCULATED) > 59 mL/min/; POTASSIUM 4.3 MEQ/L (3.7-5.4); SODIUM 142 MEQ/L (136-147); UREA NITROGEN (BUN) 26 mg/dL (9-23)
[2017-11-08 10:43] LABS: GLUCOSE 146 mg/dL (70-99)
[2017-11-08 11:16] VITALS: BP 150/78
[2017-11-08 16:11] VITALS: BP 150/78
[2017-11-08 23:45] VITALS: BP 139/72
[2017-11-09 08:00] VITALS: BP 146/78
[2017-11-09 16:24] VITALS: BP 158/72
[2017-11-09 23:40] VITALS: BP 152/79
[2017-11-10 07:57] VITALS: BP 183/75
[2017-11-10 16:12] VITALS: BP 165/72
[2017-11-11 00:25] VITALS: BP 147/63
[2017-11-11 07:11] LABS: BASOPHIL (%) 0.2 % (0-1); EOSINOPHIL (%) 4.7 % (0-5); EOSINOPHIL COUNT 0.3 K/uL (0-0.3); HEMATOCRIT 34.8 % (36.0-46.0); HEMOGLOBIN 10.4 G/DL (11.9-15.5); IMMATURE GRANULOCYTE (%) 0.9 % (0.0-0.7); LYMPHOCYTE (%) 18.8 % (15-42); MCH 26.6 PG (29.0-34.0); MCHC 29.9 G/DL (30.0-36.0); MONOCYTE (%) 11.4 % (3-12); MONOCYTE COUNT 0.6 K/uL (0-0.8); NEUTROPHIL COUNT 3.6 K/uL (1.8-6.4); PLATELET COUNT 213 K/uL (156-360); RBC DIS.WIDTH-CV 16.9 % (11.8-14.6); RBC DIS.WIDTH-SD 53.5 % (39-53); RED BLOOD COUNT 3.91 M/uL (3.80-5.20); WHITE BLOOD COUNT 5.5 K/uL (4.1-10.2)
[2017-11-11 07:47] LABS: CHLORIDE 100 MEQ/L (99-109); CREATININE 0.8 MG/DL (0.6-1.3); GFR ESTIMATE (CALCULATED) > 59 mL/min/; POTASSIUM 4.8 MEQ/L (3.7-5.4); SODIUM 141 MEQ/L (136-147); UREA NITROGEN (BUN) 20 mg/dL (9-23)
[2017-11-11 07:48] LABS: GLUCOSE 85 mg/dL (70-99)
[2017-11-11 08:22] VITALS: BP 176/72
[2017-11-11 12:28] VITALS: BP 170/73
[2017-11-11] MEDS ORDERED: GABAPENTIN100 MG PO (13:39)
[2017-11-11] MEDS ORDERED: PREDNISONE20 MG PO (13:39)
[2017-11-11] MEDS ORDERED: BUSPAR5 MG PO (13:39)
[2017-11-11 15:23] VITALS: BP 142/62
== END 2017-11-11 15:36 | DRG 871 ==
LOC: EME 09:07 → EDOF 11:18 → 4EAST 11:18 → ENRESERV 11:18 → 4EAST 15:46 → ENRESERV 11-04 15:29 → CANRESERV 11-04 15:29 → 4EAST 11-06 10:59 → ENRESERV 11-06 11:04 → 4WEST 11-06 11:17 → ENRESERV 11-07 16:33 → 2EAST 11-07 18:12
PROVIDERS: Emergency Medicine; Hospitalist; Internal Medicine; Internal Medicine Critical Care Medicine; Physician Assistant
PROC: 30233N1 Transfusion of Nonautologous Red Blood Cells into Peripheral Vein, Percutaneous Approach (ICD-10-PCS; principal; 2017-11-03)
PROC: 02HV33Z Insertion of Infusion Device into Superior Vena Cava, Percutaneous Approach (ICD-10-PCS; 2017-11-05)
DX: A41.9 Sepsis, unspecified organism (principal); J15.9 Unspecified bacterial pneumonia; J96.22 Acute and chronic respiratory failure with hypercapnia; J96.21 Acute and chronic respiratory failure with hypoxia; J44.0 Chronic obstructive pulmonary disease with (acute) lower respiratory infection; J44.1 Chronic obstructive pulmonary disease with (acute) exacerbation; Z99.81 Dependence on supplemental oxygen; N39.0 Urinary tract infection, site not specified; B96.20 Unspecified Escherichia coli [E. coli] as the cause of diseases classified elsewhere; Z16.12 Extended spectrum beta lactamase (ESBL) resistance; K92.1 Melena; D62 Acute posthemorrhagic anemia; I11.0 Hypertensive heart disease with heart failure; I50.9 Heart failure, unspecified; E87.2 Acidosis; R11.10 Vomiting, unspecified; M81.0 Age-related osteoporosis without current pathological fracture; G62.9 Polyneuropathy, unspecified; E66.01 Morbid (severe) obesity due to excess calories; Z68.38 Body mass index [BMI] 38.0-38.9, adult; I27.20 Pulmonary hypertension, unspecified; K44.9 Diaphragmatic hernia without obstruction or gangrene; E78.5 Hyperlipidemia, unspecified; G47.33 Obstructive sleep apnea (adult) (pediatric); I25.10 Atherosclerotic heart disease of native coronary artery without angina pectoris; J98.11 Atelectasis; K21.9 Gastro-esophageal reflux disease without esophagitis; M19.90 Unspecified osteoarthritis, unspecified site; G89.29 Other chronic pain; Z53.29 Procedure and treatment not carried out because of patient's decision for other reasons; F40.240 Claustrophobia; F32.9 Major depressive disorder, single episode, unspecified; F41.9 Anxiety disorder, unspecified; Z60.2 Problems related to living alone; Z95.828 Presence of other vascular implants and grafts; Z86.711 Personal history of pulmonary embolism; Z91.81 History of falling; Z87.891 Personal history of nicotine dependence; Z87.442 Personal history of urinary calculi; Z90.710 Acquired absence of both cervix and uterus; Z82.49 Family history of ischemic heart disease and other diseases of the circulatory system; Z80.49 Family history of malignant neoplasm of other genital organs
CPT/HCPCS: 36600; 71045; 71250; 74220; 78278; 80048; 80076; 81003; 82803; 83605; 83880; 84145 90; 84484; 85014; 85018; 85025; 85027; 86141; 86850; 86900; 86901; 86920; 87040; 87077; 87086; 87186; 87502; 87641; 92610 GN; 93005; 93306; 94002; 94010; 94640; 94640 76; 94667; 94760; 94799; 97530 GP; 99202; 99281; 99285; A9512; A9560; C1751; C9113; J0456; J0696; J1335; J1644; J1940; J2185; J2920; J3370; J7030; J7050; J7512; P9016

== ENCOUNTER 2018-01-05 05:49 | Inpatient (IN) | payer OTHER ==
[~2018-01-05] VITALS: Ht 154.9 cm; Wt 85.3 kg
[2018-01-05] VITALS (8 sets, daily range): BP systolic 147–178; BP diastolic 57–70
[~2018-01-05 05:49] MED LIST changes: +GABAPENTIN100 MG PO; +PREDNISONE20 MG PO
[2018-01-05 07:23] LABS: APPEARANCE SL.HAZY ((CLEAR)); BILIRUBIN NEGATIVE; BLOOD NEGATIVE; COLOR YELLOW ((YELLOW)); GLUCOSE (STRIP) NEGATIVE; KETONES NEGATIVE; LEUKOCYTES TRACE; NITRITE NEGATIVE; PROTEIN (STRIP) 30; SPECIFIC GRAVITY 1.017 (1.000-1.030); UROBILINOGEN 0.2 MG/DL (0.2-1.0)
[2018-01-05 07:28] LABS: BACTERIA RARE /HPF; EPITHELIAL CELLS RARE /HPF; MUCUS TRACE /LPF; RED BLOOD CELLS 0-5 /HPF (0-5); UCUL ADDED? YES
[2018-01-05 08:01] LABS: HEMATOCRIT 20.1 % (36.0-46.0); MCH 28.4 PG (29.0-34.0); MCHC 30.3 G/DL (30.0-36.0); MCV 93.5 FL (83-99); PLATELET COUNT 260 K/uL (156-360); RBC DIS.WIDTH-CV 16.4 % (11.8-14.6); RBC DIS.WIDTH-SD 56.8 % (39-53); RED BLOOD COUNT 2.15 M/uL (3.80-5.20); WHITE BLOOD COUNT 6.1 K/uL (4.1-10.2)
[2018-01-05 08:02] LABS: HEMOGLOBIN 6.1 G/DL (11.9-15.5)
[2018-01-05 08:11] LABS: CHLORIDE 106 mEq/L (99-109); POTASSIUM 4.4 mEq/L (3.7-5.4); SODIUM 144 mEq/L (136-147)
[2018-01-05 08:13] LABS: GLUCOSE 107 mg/dL (70-99)
[2018-01-05 08:17] LABS: CREATININE 0.8 mg/dL (0.6-1.3); GFR ESTIMATE (CALCULATED) > 59 mL/min/
[2018-01-05 08:18] LABS: UREA NITROGEN (BUN) 27 mg/dL (9-23)
[2018-01-05 11:07] LABS: IRON 39 MCG/DL (35-150); TRANSFERRIN (TIBC) 248.9 mg/dL (215-380); TRANSFERRIN SATUR. 16 % (20-55)
[2018-01-05 18:22] LABS: HEMATOCRIT 27.4 % (36.0-46.0); MCH 29.3 PG (29.0-34.0); MCHC 31.8 G/DL (30.0-36.0); MCV 92.3 FL (83-99); PLATELET COUNT 274 K/uL (156-360); RBC DIS.WIDTH-CV 16.1 % (11.8-14.6); RBC DIS.WIDTH-SD 54.5 % (39-53); RED BLOOD COUNT 2.97 M/uL (3.80-5.20); WHITE BLOOD COUNT 5.1 K/uL (4.1-10.2)
[2018-01-05 18:23] LABS: HEMOGLOBIN 8.7 G/DL (11.9-15.5)
[2018-01-06 00:15] VITALS: BP 169/71
[2018-01-06 03:51] VITALS: BP 157/67
[2018-01-06 05:50] LABS: HEMATOCRIT 26.2 % (36.0-46.0); MCH 28.4 PG (29.0-34.0); MCHC 30.5 G/DL (30.0-36.0); MCV 92.9 FL (83-99); PLATELET COUNT 238 K/uL (156-360); RBC DIS.WIDTH-CV 16.1 % (11.8-14.6); RBC DIS.WIDTH-SD 55.3 % (39-53); RED BLOOD COUNT 2.82 M/uL (3.80-5.20); WHITE BLOOD COUNT 4.6 K/uL (4.1-10.2)
[2018-01-06 06:17] LABS: CHLORIDE 105 MEQ/L (99-109); CREATININE 0.8 MG/DL (0.6-1.3); GFR ESTIMATE (CALCULATED) > 59 mL/min/; GLUCOSE 89 mg/dL (70-99); POTASSIUM 4.1 MEQ/L (3.7-5.4); SODIUM 142 MEQ/L (136-147); UREA NITROGEN (BUN) 14 mg/dL (9-23)
[2018-01-06 07:58] VITALS: BP 181/77
[2018-01-06] MEDS ORDERED: BUSPAR5 MG PO (15:08)
[2018-01-06] MEDS ORDERED: ATROVENT H200 INHALA IH (15:09)
[2018-01-06] MEDS ORDERED: GABAPENTIN100 MG PO (15:09)
[2018-01-06] MEDS ORDERED: PANTOPRAZOLE SO40 MG PO (15:09)
[2018-01-06] MEDS ORDERED: LOSARTAN POTASS50 MG PO (15:11)
[2018-01-06] MEDS ORDERED: AMLODIPINE BESYL5 MG PO (15:12)
[2018-01-06] MEDS ORDERED: TRAZODONE HCL50 MG PO (15:12)
[2018-01-06] MEDS ORDERED: PERCOCET 10/1 TABLET PO (15:31)
[2018-01-06 15:53] VITALS: BP 151/68
[2018-01-06 23:29] VITALS: BP 157/66
[2018-01-07 07:05] VITALS: BP 147/66
[2018-01-07 09:14] LABS: HEMATOCRIT 26.1 % (36.0-46.0); HEMOGLOBIN 7.9 G/DL (11.9-15.5); MCH 28.7 PG (29.0-34.0); MCHC 30.3 G/DL (30.0-36.0); MCV 94.9 FL (83-99); PLATELET COUNT 219 K/uL (156-360); RBC DIS.WIDTH-CV 16.4 % (11.8-14.6); RED BLOOD COUNT 2.75 M/uL (3.80-5.20); WHITE BLOOD COUNT 3.9 K/uL (4.1-10.2)
[2018-01-07 13:05] LABS: HEMATOCRIT 27.5 % (36.0-46.0); HEMOGLOBIN 8.3 G/DL (11.9-15.5); MCV 94.5 FL (83-99)
[2018-01-07 15:13] VITALS: BP 121/56
[2018-01-08 00:37] VITALS: BP 172/78
[2018-01-08 06:18] LABS: BASOPHIL (%) 0.2 % (0-1); EOSINOPHIL (%) 13.3 % (0-5); EOSINOPHIL COUNT 0.6 K/uL (0-0.3); HEMATOCRIT 27.5 % (36.0-46.0); HEMOGLOBIN 8.1 G/DL (11.9-15.5); IMMATURE GRANULOCYTE (%) 0.2 % (0.0-0.7); LYMPHOCYTE (%) 22.6 % (15-42); LYMPHOCYTE COUNT 0.9 K/uL (1.0-2.8); MCHC 29.5 G/DL (30.0-36.0); MCV 95.2 FL (83-99); MONOCYTE (%) 11.4 % (3-12); MONOCYTE COUNT 0.5 K/uL (0-0.8); NEUTROPHIL (%) 52.3 % (45-76); NEUTROPHIL COUNT 2.2 K/uL (1.8-6.4); PLATELET COUNT 224 K/uL (156-360); RBC DIS.WIDTH-CV 15.9 % (11.8-14.6); RBC DIS.WIDTH-SD 55.4 % (39-53); RED BLOOD COUNT 2.89 M/uL (3.80-5.20); WHITE BLOOD COUNT 4.1 K/uL (4.1-10.2)
[2018-01-08 07:07] VITALS: BP 168/70
== END 2018-01-08 15:36 | disposition home health service (06) | DRG 812 ==
LOC: EME → EDBD 05:49 → EME 05:49 → 5SOUTH 10:09 → EDOF 10:09 → CANRESERV 10:10 → ENRESERV 10:10 → 5SOUTH 13:42
PROVIDERS: Emergency Medicine; Hospitalist; Physician Assistant
PROC: 30233N1 Transfusion of Nonautologous Red Blood Cells into Peripheral Vein, Percutaneous Approach (ICD-10-PCS; principal; 2018-01-05)
DX: D50.0 Iron deficiency anemia secondary to blood loss (chronic) (principal); G89.29 Other chronic pain; J44.9 Chronic obstructive pulmonary disease, unspecified; E86.0 Dehydration; I11.0 Hypertensive heart disease with heart failure; E78.5 Hyperlipidemia, unspecified; I50.9 Heart failure, unspecified; K21.9 Gastro-esophageal reflux disease without esophagitis; F11.23 Opioid dependence with withdrawal; N39.0 Urinary tract infection, site not specified; Z99.81 Dependence on supplemental oxygen; F32.9 Major depressive disorder, single episode, unspecified; F41.9 Anxiety disorder, unspecified; M19.90 Unspecified osteoarthritis, unspecified site; G43.909 Migraine, unspecified, not intractable, without status migrainosus; Z87.891 Personal history of nicotine dependence; Z90.710 Acquired absence of both cervix and uterus; Z86.711 Personal history of pulmonary embolism; Z79.899 Other long term (current) drug therapy
CPT/HCPCS: 71045; 80048; 81003; 82272; 83540; 84466; 85014; 85018; 85025; 85027; 86850; 86900; 86901; 86920; 87086; 93005; 94640; 94799; 99281; 99285; J1335; J2405; J7050; J7120; P9016

== ENCOUNTER 2018-02-08 18:10 | Inpatient (IN) | payer OTHER ==
[~2018-02-08] VITALS: Ht 154.9 cm; Wt 82.0 kg
[~2018-02-08 18:10] MED LIST changes: +ATROVENT H200 INHALA IH
[2018-02-08 19:08] LABS: PTT 23.3 SEC (25-37)
[2018-02-08 19:14] LABS: ALBUMIN 3.5 g/dL (3.2-4.8); CHLORIDE 100 mEq/L (99-109); POTASSIUM 4.9 mEq/L (3.7-5.4); SODIUM 137 mEq/L (136-147)
[2018-02-08 19:16] LABS: GLUCOSE 95 mg/dL (70-99)
[2018-02-08 19:18] LABS: TOTAL BILIRUBIN 0.4 mg/dL (0.0-1.0)
[2018-02-08 19:20] LABS: ALKALINE PHOSPHATASE 132 IU/L (3-129); CREATININE 1.5 mg/dL (0.6-1.3); GFR ESTIMATE (CALCULATED) 35 mL/min/
[2018-02-08 19:21] LABS: UREA NITROGEN (BUN) 25 mg/dL (9-23)
[2018-02-08 19:22] LABS: AST (GOT) 180 IU/L (2-34); DIRECT BILIRUBIN 0.2 mg/dL (0.0-0.3)
[2018-02-08 19:23] LABS: ALT (GPT) 90 IU/L (3-49)
[2018-02-08 19:55] LABS: TROP-I INTERPRETATION NEGATIVE; TROPONIN-I 0.02 ng/mL (0.0-0.30)
[2018-02-08 20:01] LABS: BASOPHIL (%) 0.3 % (0-1); EOSINOPHIL (%) 4.4 % (0-5); EOSINOPHIL COUNT 0.2 K/uL (0-0.3); HEMATOCRIT 24.7 % (36.0-46.0); HEMOGLOBIN 7.4 G/DL (11.9-15.5); IMMATURE GRANULOCYTE (%) 0.3 % (0.0-0.7); LYMPHOCYTE (%) 20.3 % (15-42); LYMPHOCYTE COUNT 0.8 K/uL (1.0-2.8); MCH 28.9 PG (29.0-34.0); MCV 96.5 FL (83-99); MONOCYTE (%) 8.7 % (3-12); MONOCYTE COUNT 0.3 K/uL (0-0.8); NEUTROPHIL COUNT 2.6 K/uL (1.8-6.4); PLATELET COUNT 149 K/uL (156-360); RBC DIS.WIDTH-CV 14.9 % (11.8-14.6); RBC DIS.WIDTH-SD 52.6 % (39-53); RED BLOOD COUNT 2.56 M/uL (3.80-5.20); WHITE BLOOD COUNT 3.9 K/uL (4.1-10.2)
[2018-02-08] MEDS ORDERED: PAXIL20 MG PO (20:27)
[2018-02-08 20:45] LABS: APPEARANCE CLEAR ((CLEAR)); BILIRUBIN NEGATIVE; BLOOD SMALL; COLOR STRAW ((YELLOW)); GLUCOSE (STRIP) NEGATIVE; KETONES NEGATIVE; LEUKOCYTES SMALL; NITRITE NEGATIVE; PROTEIN (STRIP) NEGATIVE; SPECIFIC GRAVITY 1.008 (1.000-1.030); UROBILINOGEN 0.2 MG/DL (0.2-1.0)
[2018-02-08 20:53] LABS: BACTERIA 3+ /HPF; EPITHELIAL CELLS NONE SEEN /HPF; MUCUS TRACE /LPF; RED BLOOD CELLS 0-5 /HPF (0-5); UCUL ADDED? YES; WHITE BLOOD CELLS 15-20 /HPF (0-5)
[2018-02-08 22:30] VITALS: BP 118/77
[2018-02-09] VITALS (14 sets, daily range): BP systolic 116–161; BP diastolic 55–78
[2018-02-09 10:01] LABS: HEMATOCRIT 32.6 % (36.0-46.0)
[2018-02-09 10:18] LABS: CHLORIDE 101 MEQ/L (99-109); CREATININE 1.1 MG/DL (0.6-1.3); GFR ESTIMATE (CALCULATED) 50 mL/min/; GLUCOSE 92 mg/dL (70-99); HDL CHOLESTEROL 59 MG/DL (Desirable>=50); LDL CHOLESTEROL 103 mg/dL (Desirable<100); NON-HDL CHOLESTEROL 119 mg/dL (Desirable<160); POTASSIUM 4.5 MEQ/L (3.7-5.4); SODIUM 141 MEQ/L (136-147); TOTAL CHOLESTEROL 178 mg/dL (Desirable<200); TRIGLYCERIDES 81 MG/DL (Normal: <150); UREA NITROGEN (BUN) 20 mg/dL (9-23)
[2018-02-09 15:18] LABS: ABSOLUTE RETICULOCYTE CT. 0.05 M/uL (0.02-0.08); IMM.RETIC FRACTION 13.4 % (3-19); RETICULOCYTE COUNT 1.4 % (0.5-1.8)
[2018-02-09 15:54] LABS: IRON 191 MCG/DL (35-150); TRANSFERRIN (TIBC) 279.5 mg/dL (215-380); TRANSFERRIN SATUR. 68 % (20-55)
[2018-02-09 15:54] LABS: A/G RATIO 1.4 (1.1-1.8); ALBUMIN 3.3 G/DL (3.4-5.0); GLOBULINS 2.3 G/DL (2.3-3.5); TOTAL PROTEIN 5.6 G/DL (6.4-8.2)
[2018-02-09 16:08] LABS: LACTATE DEHYDROGENASE 156 IU/L (20-246)
[2018-02-09 16:10] LABS: FERRITIN 9 NG/ML (10-291)
[2018-02-09 16:44] LABS: FOLIC ACID (FOLATE) > 22.0 NG/ML (5.0-22.0)
[2018-02-10 03:26] VITALS: BP 131/61
[2018-02-10 05:54] LABS: BASOPHIL (%) 0.5 % (0-1); EOSINOPHIL COUNT 0.3 K/uL (0-0.3); HEMATOCRIT 29.9 % (36.0-46.0); HEMOGLOBIN 9.3 G/DL (11.9-15.5); IMMATURE GRANULOCYTE (%) 0.3 % (0.0-0.7); LYMPHOCYTE (%) 23.7 % (15-42); LYMPHOCYTE COUNT 0.9 K/uL (1.0-2.8); MCH 29.2 PG (29.0-34.0); MCHC 31.1 G/DL (30.0-36.0); MCV 93.7 FL (83-99); MONOCYTE (%) 12.4 % (3-12); MONOCYTE COUNT 0.5 K/uL (0-0.8); NEUTROPHIL (%) 56.1 % (45-76); NEUTROPHIL COUNT 2.1 K/uL (1.8-6.4); PLATELET COUNT 154 K/uL (156-360); RBC DIS.WIDTH-CV 14.7 % (11.8-14.6); RBC DIS.WIDTH-SD 50.8 % (39-53); WHITE BLOOD COUNT 3.7 K/uL (4.1-10.2)
[2018-02-10 05:58] LABS: RED BLOOD COUNT 3.19 M/uL (3.80-5.20)
[2018-02-10 06:10] LABS: CHLORIDE 100 MEQ/L (99-109); CREATININE 1.2 MG/DL (0.6-1.3); GFR ESTIMATE (CALCULATED) 45 mL/min/; GLUCOSE 100 mg/dL (70-99); POTASSIUM 4.1 MEQ/L (3.7-5.4); SODIUM 141 MEQ/L (136-147); UREA NITROGEN (BUN) 23 mg/dL (9-23)
[2018-02-10 07:45] VITALS: BP 174/73
[2018-02-10 11:18] VITALS: BP 150/70
[2018-02-10] MEDS ORDERED: ATORVASTATIN CA40 MG PO (11:47)
[2018-02-10] MEDS ORDERED: ZOFRAN4 MG PO (11:50)
[2018-02-10 13:18] LABS: ALBUMIN 3.3 G/DL (3.2-4.8); ALKALINE PHOSPHATASE 109 IU/L (3-129); ALT (GPT) 45 IU/L (3-49); AST (GOT) 42 IU/L (2-34); DIRECT BILIRUBIN 0.9 mg/dL (0.0-0.3); TOTAL BILIRUBIN 1.2 MG/DL (0.0-1.0); TOTAL PROTEIN 5.4 G/DL (6.4-8.3)
[2018-02-10 13:24] LABS: HEMOGLOBIN A1c (GLYCOHEMOGLOB) 5.4 % (Below 5.7)
[2018-02-14 12:33] LABS: ALBUMIN 3.17 G/DL (3.6-4.9); ALPHA-1 GLOBULIN 0.26 G/DL (0.15-0.40); ALPHA-2 GLOBULIN 0.68 G/DL (0.45-0.85); BETA-GLOBULIN 0.72 G/DL (0.65-1.15); GAMMA-GLOBULIN 0.77 G/DL (0.60-1.35)
== END 2018-02-10 16:44 | disposition home or self-care (01) | DRG 809 ==
LOC: EME 18:10 → EDOF 20:51 → 4SOUTH 20:51 → CANRESERV 20:55 → ENRESERV 20:55 → 4SOUTH 22:06 → ENPENDDIS 02-10 13:54 → 4SOUTH 02-10 16:44
PROVIDERS: Emergency Medicine; Internal Medicine; Physician Assistant Medical
PROC: 30233N1 Transfusion of Nonautologous Red Blood Cells into Peripheral Vein, Percutaneous Approach (ICD-10-PCS; principal; 2018-02-09)
DX: D61.818 Other pancytopenia (principal); N17.9 Acute kidney failure, unspecified; J96.12 Chronic respiratory failure with hypercapnia; J96.11 Chronic respiratory failure with hypoxia; G83.21 Monoplegia of upper limb affecting right dominant side; E61.1 Iron deficiency; E78.5 Hyperlipidemia, unspecified; I11.0 Hypertensive heart disease with heart failure; I50.9 Heart failure, unspecified; G89.29 Other chronic pain; J44.9 Chronic obstructive pulmonary disease, unspecified; K21.9 Gastro-esophageal reflux disease without esophagitis; E03.9 Hypothyroidism, unspecified; G43.909 Migraine, unspecified, not intractable, without status migrainosus; E66.9 Obesity, unspecified; Z87.891 Personal history of nicotine dependence; Z99.81 Dependence on supplemental oxygen; Z87.442 Personal history of urinary calculi; Z79.899 Other long term (current) drug therapy; Z90.710 Acquired absence of both cervix and uterus; Z88.6 Allergy status to analgesic agent; Z86.711 Personal history of pulmonary embolism; Z68.32 Body mass index [BMI] 32.0-32.9, adult; Z85.42 Personal history of malignant neoplasm of other parts of uterus
CPT/HCPCS: 70450; 70551; 71045; 76705; 80048; 80061; 80076; 81003; 82525 90; 82607; 82728; 82746; 83036; 83090 90; 83540; 83605; 83615; 83880; 83880 GA; 83921 90; 84165; 84466; 84484; 84630 90; 85014; 85018; 85025; 85025 GA; 85046; 85610; 85730; 86334; 86850; 86900; 86901; 86920; 87086; 87641; 93005; 93306; 93880; 94640; 94799; 99281; 99285; G0378; J1756; J1940; J2543; J7050; P9016